=== PATIENT | female | born 2000 | race Two or more races ===

== ENCOUNTER 2025-02-15 22:52 | Observation (INO) | payer MEDICAID, SELFPAY ==
[2025-02-15] VITALS (9 sets, daily range): BP systolic 106–120; BP diastolic 74–83; PULSE 68–87; RESP 18–98; TEMP 36.7; O2SAT 88–99; BMI 25.3
[2025-02-16] VITALS (13 sets, daily range): BP systolic 115–122; BP diastolic 82–85; PULSE 63–94; O2SAT 98–100
[2025-02-16 00:36] LABS: ROM Kit Lot # 578010271; ROM Swab Mixed By: GONZY; Rupture of Fetal Membranes Negative (Negative); Swb Mxed in Solvent 1 min? Yes
[2025-02-16] MEDS: hydrOXYzine HCL 25 MG TABLET 50 MG PO (01:58)
== END 2025-02-16 02:04 | disposition home or self-care (01) ==
PROVIDERS: Admitting Provider Obstetrics & Gynecology; Visit Provider Obstetrics & Gynecology
DX: O47.03 False labor before 37 completed weeks of gestation, third trimester (principal); Z3A.36 36 weeks gestation of pregnancy
CPT/HCPCS: 59025; 59899; 84112; A9270

== ENCOUNTER 2025-02-23 09:49 | Observation (INO) | payer MEDICAID, SELFPAY ==
[2025-02-23] VITALS (13 sets, daily range): BP systolic 90–110; BP diastolic 55–67; PULSE 65–86; RESP 18–100; TEMP 36.6; O2SAT 94–100; BMI 25.7
[2025-02-23] MEDS: ONDANSETRON ODT 4 MG TABRAP PO (10:55)
== END 2025-02-23 11:02 | disposition home or self-care (01) ==
PROVIDERS: Admitting Provider Student in an Organized Health Care Education/Training Program; PCP Nurse Practitioner Women's Health; Visit Provider Student in an Organized Health Care Education/Training Program
DX: O36.8130 Decreased fetal movements, third trimester, not applicable or unspecified (principal); O21.2 Late vomiting of pregnancy; O26.893 Other specified pregnancy related conditions, third trimester; R19.7 Diarrhea, unspecified; R42 Dizziness and giddiness; Z3A.37 37 weeks gestation of pregnancy
CPT/HCPCS: 59025; 59899; Q0162

== ENCOUNTER 2025-03-01 03:14 | Inpatient (IN) | payer MEDICAID, SELFPAY ==
[2025-03-01] VITALS (33 sets, daily range): BP systolic 106–142; BP diastolic 58–93; PULSE 55–92; RESP 16–100; TEMP 36.6–36.9; O2SAT 82–100
[2025-03-01] MEDS: RINGERS LACTATED 1000 ML 1,000 ML 125 ML IV (04:15)
[2025-03-01 04:26] LABS: Collection Type, Urine Clean Catch
--- NOTE | 2025-03-01 04:30 | PD.LDHP ---
Documentation for date of: 03/01/25 OB Labor/Induct. HPI History of Present Illness Chief complaint: 24 y/o 38w 2d present to L&D in labor with SROM : 3 Para: 1 Term pregnancies: 1 pregnancies: 0 Living children: 1 History of Abortions: Spontaneous and Elective: 1 History of Vaginal deliveries: 1 History of sections: No History of : No WENDY: 03/13/25 Gestational Age (weeks): 38 Gestational Age (days): 2 History of present illness: 24 y/o 38w 2d present to L&D in labor with SROM at 5 m vertex, pan every 3 minutes, category 1 tracing. Pt is RH negative and did get RHOGAM at 28 weeks. Pt also has anemia. Other newman has been unremarkable. Pt has a hx of PPH at her last delivery. EFW 3000g History of Present Dating criteria: LMP confirmed by 1st trimester US Adequate Care: Yes Ultrasounds: normal 1st trimester US and normal mid trimester US Obstetrical complications: other (RH negative) Medical complications: none Labs Maternal Blood Type: O Neg Labs: Positive: Rubella Titre, Negative: RPR, Hepatitis B, HIV, Chlamydia, Gonorrhea and Group Beta Strep and Unknown: Herpes Type 1, Herpes Type 2 and Covid-19 Review of Systems Review of Systems Systems Reviewed: All systems reviewed, normal except as documented Past Medical History Surgical History SURGICAL: Negative Section Meds Home Medications and Allergies Home Medications ?Medication ?Instructions ?Recorded ?Confirmed ?Type folic acid 1 mg tablet 1 mg PO DAILY 02/15/25 02/23/25 History Allergies Allergy/AdvReac Type Severity Reaction Status Date / Time No Known Allergies Allergy Verified 02/23/25 10:22 OB Exam Physical Exam Vital signs: Temp Pulse Resp BP Pulse Ox 97.8 F 60 18 133/74 H 98 03/01/25 04:04 03/01/25 04:52 03/01/25 03:45 03/01/25 04:52 03/01/25 05:05 Constitutional Constitutional: moderate distress (Secondary to painful contractions) Routine HEENT Exam Head: Present normocephalic and atraumatic Eye: Present EOMI, PERRL and normal accommodation ENT: Present mucous membranes moist Routine Neck Exam Neck: Present full ROM Routine Respiratory Exam Respiratory: Absent respiratory distress Routine Cardiovascular Exam Cardiovascular: Present RRR Routine Abdominal Exam Abdominal: Present soft Comments: Gravid uterus EFW 3000g Routine Exam External: Present normal urethra appearance; Absent lesions Detailed Labor and Delivery Exam Dilation (cm): 5 Effacement (%): 80 Cervix position: posterior station: -2 Consistency: soft Presentation: Vertex Membranes: ruptured Amniotic fluid: clear Baseline heart rate: 120 monitor accelerations: 15x15 monitor decelerations: None adjunct faculty for medical terminology variability: Moderate (11-25) Contraction frequency (min): 3 min Routine Extremities Exam Extremities: Present full ROM Routine Back/Spine/Pelvis Exam Back/Spine: Present full ROM Routine Skin Exam Skin: Present intact, dry and warm Routine Neurological Exam Neurological: Present alert, oriented X3 and CN II-XII intact Routine Psychiatric Exam Psychiatric: Present normal affect and normal thought process OB Results Labs 03/01/25 04:10 03/01/25 04:10 Labs: Short CBC 03/01/25 Range/Units 04:10 WBC 9.6 (3.6-11.0) Thou/mm3 Hgb 10.6 L (12.0-16.0) g/dL Hct 33.5 L (36.0-46.0) % Plt Count 339 (140-440) Thou/mm3 BMP 03/01/25 04:10 Sodium 140 Potassium 4.1 Chloride 108 H Carbon Dioxide 21.8 BUN 6 L Creatinine 0.5 L Glucose 90 Calcium 8.7 Liver Function 03/01/25 Range/Units 04:10 Total Bilirubin 0.3 (0.3-1.2) mg/dL AST 23 (0-34) U/L ALT 23 (10-49) U/L Alkaline Phosphatase 166 H (46-116) U/L Albumin 3.9 (3.5-5.0) gm/dL Urine 03/01/25 Range/Units 04:10 Urine Color Colorless A (Lt Yel-Yel) Urine Clarity Clear (Clear/Hazy) Urine pH 7.0 (5.0-7.0) Ur Specific [place] 1.005 (1.001-1.035) Urine Protein Negative (Neg - Trace) Urine Glucose (UA) Negative (Negative) OB Assessment & Plan Assessment and Plan (1) Normal labor: Status: Acute (2) Anemia affecting in third trimester: Status: Acute (3) Rh negative status during : Status: Acute (4) with 38 completed weeks gestation: Status: Acute Additional Plan Induction method: none Plan: anticipate NVD and consult MD coreas Additional Plan Comment: Routine admit orders Pt has a hx of PPH, ordered 2 units PRBCs on hold Continuous EFM PPH meds at bedside (3) Rh negative status during Qualifiers: Trimester: third trimester Qualified Code(s): O26.893 - Other specified related conditions, third trimester; Z67.91 - Unspecified blood type, Rh negative
[2025-03-01 04:35] LABS: Basophils % (Auto) 0 % (0-2.5); Eosinophils % (Auto) 0 % (0-10); Hematocrit 33.5 % (36.0-46.0); Hemoglobin 10.6 g/dL (12.0-16.0); Immature Granulocytes % (Auto) 1 % (0-0); Immature Granulocytes Auto 0.05 Thou/mm3 (0.00-0.00); Lymphocytes # (Auto) 2.4 Thou/mm3 (1.0-4.8); Lymphocytes % (Auto) 25 % (10-50); Mean Corpuscular HGB Conc 31.6 g/dl (31.0-37.0); Mean Corpuscular Hemoglobin 22.6 pg (25.0-35.0); Mean Corpuscular Volume 72 fL (80-100); Monocytes # (Auto) 0.6 Thou/mm3 (0.0-0.8); Monocytes % (Auto) 6 % (0-12); Neutrophils # (Auto) 6.5 Thou/mm3 (1.8-7.7); Neutrophils % (Auto) 68 % (37-80); Nucleated Red Blood Cell % 0 /100 WBC (0); Platelet Count 339 Thou/mm3 (140-440); RDW Standard Deviation 38.2 fL (36.4-46.3); Red Blood Count 4.68 Miln/mm3 (4.00-5.20); White Blood Count 9.6 Thou/mm3 (3.6-11.0)
[2025-03-01 04:45] LABS: Bilirubin,Urine Negative (Negative); Blood,Urine Negative (Negative); Clarity,Urine Clear (Clear/Hazy); Color,Urine Colorless (Lt Yel-Yel); Glucose, Urine Negative (Negative); Ketones,Urine Negative (Negative); Leukocyte Esterase,Urine Negative (Negative); Nitrite,Urine Negative (Negative); Protein,Urine Negative (Neg - Trace); RBC,Urine 1 /hpf (0-3); Specific Gravity,Urine 1.005 (1.001-1.035); Squamous Epithelial Cell,Urine < 1 /hpf (0-5); Urobilinogen,Urine Negative mg/dL (0.0-1.0); WBC,Urine 1 /hpf (0-5)
[2025-03-01 04:47] LABS: Alanine Aminotransferase 23 U/L (10-49); Albumin, Serum 3.9 gm/dL (3.5-5.0); Albumin/Globulin Ratio 1.4 (1.2-2.2); Alkaline Phosphatase 166 U/L (46-116); Anion Gap 10 (7-16); Aspartate Amino Transferase 23 U/L (0-34); BUN/Creatinine Ratio 12 Ratio (12-20); Bilirubin,Total 0.3 mg/dL (0.3-1.2); Blood Urea Nitrogen 6 mg/dL (9-23); Calcium 8.7 mg/dL (8.3-10.6); Calcium (Corrected) 8.8 mg/dL (8.5-10.1); Carbon Dioxide 21.8 mMol/L (20.0-31.0); Chloride 108 mMol/L (98-107); Creatinine (Component) 0.5 mg/dL (0.6-1.3); Globulin 2.7 gm/dL (2.3-3.5); Glucose 90 mg/dL (74-106); Osmolality,Calculated 277 (275-295); Potassium 4.1 mMol/L (3.4-5.1); Sodium 140 mMol/L (136-145); Total Protein 6.6 gm/dL (5.7-8.2); Uric Acid 4.3 mg/dL (3.1-7.8); eGFR > 60 See Note
[2025-03-01 05:04] LABS: Syphilis Nonreactive (Nonreactive)
[2025-03-01] MEDS: MINERAL OIL 30 ML UDC TOP (05:16)
[2025-03-01 05:18] LABS: Fibrinogen 448 mg/dL (175-375); INR 0.9 (0.9-1.3); Prothrombin Time 10.1 Seconds (9.0-12.2)
[2025-03-01] MEDS: OXYTOCIN in NS 20 units 20 UNIT/1,000 ML BAG 125 UNIT IV (05:26)
[2025-03-01] MEDS: METHYLERGONOVINE INJ 0.2 MG/ML VIAL IM (05:29)
[2025-03-01] MEDS: LIDOCAINE HCL 1% 20 ML VIAL INFL (05:31)
[2025-03-01] MEDS: BENZO/LANO/ALOE (Dermoplast) 60 GM CAN 1 SPRAY TOP (05:38)
--- NOTE | 2025-03-01 05:45 | OBDSUM_ITS ---
Data ([facility]) Data Hx Section: No Maternal Blood Type: O Neg Rubella Titre: Positive RPR: Non-reactive Labs: Negative: RPR, Hepatitis B, HIV, Chlamydia, Gonorrhea and Group Beta Strep and Unknown: Herpes Type 1 and Herpes Type 2 : 3 Para: 1 Term: 1 : 0 Livin : 1 Delivery Data ([facility]) Labor Data Stimulated/Augmented: No Induction: No ROM Date: 03/01/25 ROM Time: 03:00 Rupture Type: SROM Amniotic Fluid: Clear Delivery Data EDC: 03/13/25 EDC calculated by:: LMP/early US confirmation Labor Onset Stage 1 Date: 03/01/25 Labor Onset Stage 1 Time: 03:37 Labor Onset Stage 2 Date: 03/01/25 Labor Onset Stage 2 Time: 05:09 Delivery Date: 03/01/25 Delivery Time: 05:23 Gestational age (weeks): 38 Gestational age (days): 2 Placenta Delivery Date: 03/01/25 Placenta Delivery Time: 05:26 Delivered by: Larissa Franco Delivery nurse: Rasheeda See Safety Inspector at delivery: No Support person(s) at delivery: FOB Other staff at delivery: 2nd Nurse Other staff at delivery: Milana Lo Delivery Method Delivery: Vaginal Delivery Type: Spontaneous Presentation: Vertex Position: OA Anesthesia Type Primary Anesthesia: None Delivery Room Medications Other Intrapartum Medications: No Post Delivery Medications: Antibiotics Post Delivery Medications N/A: Yes Placenta Placenta Delivery: Spontaneous Placenta Cultures Obtained: No Placenta Sent for Examination: No Cord Sample: Cord Blood Obtained Episiotomy Episiotomy: None Lacerations #1: Vaginal: 1st degree Perineal repair Sutures used for repair: 3.0 Vicryl (CT) EBL Estimated blood loss (ml): 500 Umbilical Cord Umbilical Vessels: 3 Nuchal Cord: x2 Additional Procedures Patient was admitted early this morning in labor at 5 cm and progressed very quickly to complete after an hour. After a few pushes patient had an of a viable male . Infant's anterior shoulder delivered with gentle downward traction subsequent delivery of the posterior shoulder and the body without complications. Infant placed on mother's abdomen. Vigorous cry upon delivery. Cord was clamped cut by FOB. Cord blood obtained. Three-vessel cord noted. Placenta expelled spontaneously and intact. Patient sustained a small vaginal laceration. Repaired using 3-[address] Perineum intact. Patient did have some brisk bleeding. Methergine x 1 given. TXA x 2 given. Patient to continue with IV Pitocin. Excellent hemostasis achieved after vigorous fundal massage and removal of clots from the posterior fornix. EBL is 500. Sponge and needle count correct. Mother and baby stable, skin to skin and bonding in LDR. Patient to get 2 g of Ancef x 1. Marianna Data ([facility]) Marianna Data Infant Gender: Male Infant Weight Grams: 2920 1 Minute Total: 10 5 Minute Total: 9
[2025-03-01] MEDS: TRANEXAMIC ACID 1,000 MG IVPB 1,000 MG/100 ML BAG 200 MG IV (06:15)
[2025-03-01] MEDS: ceFAZolin 2 GM in SODIUM CHLORIDE 0.9% 100 ML IV (07:10)
[2025-03-01] MEDS: DOCUSATE SOD 100 MG CAPSULE PO (09:39)
[2025-03-01 10:07] LABS: Basophils % (Auto) 0 % (0-2.5); Eosinophils % (Auto) 0 % (0-10); Hemoglobin 9.9 g/dL (12.0-16.0); Immature Granulocytes % (Auto) 1 % (0-0); Immature Granulocytes Auto 0.09 Thou/mm3 (0.00-0.00); Lymphocytes # (Auto) 1.2 Thou/mm3 (1.0-4.8); Lymphocytes % (Auto) 7 % (10-50); Mean Corpuscular HGB Conc 30.9 g/dl (31.0-37.0); Mean Corpuscular Hemoglobin 22.9 pg (25.0-35.0); Mean Corpuscular Volume 74 fL (80-100); Monocytes # (Auto) 0.8 Thou/mm3 (0.0-0.8); Monocytes % (Auto) 5 % (0-12); Neutrophils # (Auto) 15.2 Thou/mm3 (1.8-7.7); Neutrophils % (Auto) 88 % (37-80); Nucleated Red Blood Cell % 0 /100 WBC (0); Platelet Count 322 Thou/mm3 (140-440); RDW Standard Deviation 39.8 fL (36.4-46.3); Red Blood Count 4.33 Miln/mm3 (4.00-5.20); White Blood Count 17.3 Thou/mm3 (3.6-11.0)
[2025-03-02 04:00] VITALS: BP 117/76; PULSE 73; RESP 18; TEMP 36.6; O2SAT 98
[2025-03-02 07:15] VITALS: BP 117/79; PULSE 72; RESP 16; TEMP 36.9; O2SAT 98
--- NOTE | 2025-03-02 10:16 | PD.LDPPPRG ---
Subjective Subjective Interval history: Patient is a 24-year-old G3P now 2009 who delivered yesterday so she is day #1. She was 38 2/7 weeks. Evette delivered her. She did have a history of hemorrhage with her first child and did get a blood transfusion. Her charted her EBL yesterday at delivery was 500 cc and she was given extra uterononics yesterday. Today the patient is resting comfortably. She does appear pale she is having a little bit of hard time breast-feeding. She denies pain,fevers or heavy vaginal bleeding. Predelivery hemoglobin is 10.6 and another one drawn about 6 hours later was 9.9 I ordered a CBC for this morning. Exam Vital Signs Temp Pulse Resp BP Pulse Ox O2 Del Method 98.4 F 72 16 117/79 98 Room Air 03/02/25 07:15 03/02/25 07:15 03/02/25 07:15 03/02/25 07:15 03/02/25 07:15 03/02/25 07:15 Constitutional Constitutional: no acute distress Comments: Appears pale Routine Abdominal Exam Abdominal: Present soft Comments: Fundus firm at umbilicus Additional findings Additional findings: No significant pedal edema or erythema Objective Labs 03/01/25 10:00 03/01/25 04:10 Labs: Laboratory Results - last 24 hr 03/01/25 03/01/25 04:10 09:45 Blood Type O Negative Rho(D) IG Studies Ready Antibody Screen POSITIVE Antibody Identification Anti-D from RhoGam Maternal Bleed Negative Blood Bank Wristband ID Yes Assessment & Plan Problem List (1) Anemia affecting in third trimester: Status: Acute Assessment and plan: Recheck hemoglobin this morning. Iron and vitamins to be taken at home. (2) Rh negative status during : Status: Acute Assessment and plan: RhoGAM given (3) Term delivered: Status: Acute Assessment and plan: Patient doing well. did see patient in the hospital. She is working on breast-feeding. She desires to go home later today as long as her hemoglobin is stable. She can follow-up with Evette in 6 weeks. Time Spent With Patient Time: Total time spent is greater than 50% in coordination of care (as documented) at patient's floor/unit and/or counseling patient: Time with patient: less than 15 minutes
[2025-03-02 10:48] LABS: Basophils % (Auto) 0 % (0-2.5); Eosinophils % (Auto) 0 % (0-10); Hematocrit 26.4 % (36.0-46.0); Immature Granulocytes % (Auto) 1 % (0-0); Immature Granulocytes Auto 0.07 Thou/mm3 (0.00-0.00); Lymphocytes % (Auto) 18 % (10-50); Mean Corpuscular HGB Conc 31.1 g/dl (31.0-37.0); Mean Corpuscular Hemoglobin 22.5 pg (25.0-35.0); Mean Corpuscular Volume 73 fL (80-100); Monocytes # (Auto) 0.8 Thou/mm3 (0.0-0.8); Monocytes % (Auto) 8 % (0-12); Neutrophils # (Auto) 7.9 Thou/mm3 (1.8-7.7); Neutrophils % (Auto) 73 % (37-80); Nucleated Red Blood Cell % 0 /100 WBC (0); Platelet Count 255 Thou/mm3 (140-440); RDW Standard Deviation 39.3 fL (36.4-46.3); Red Blood Count 3.64 Miln/mm3 (4.00-5.20); White Blood Count 10.8 Thou/mm3 (3.6-11.0)
[2025-03-02 10:54] LABS: Hemoglobin 8.2 g/dL (12.0-16.0)
--- NOTE | 2025-03-02 12:43 | PD.LDDS ---
DS: Providers Provider Date of admission: 03/01/25 03:44 Primary care physician: Physician No Primary/Family Admitting Provider: Luciano Mclean MD Attending Provider on Admission: Larissa Franco CNM Consults: 03/01/25 05:56 Referral Routine Comment: Attending Provider on DC: Maxine [facility] ([facility]) Discharging Provider: Maxine Choudhary MD ([facility]) Anticipated date of discharge: 03/02/25 DS: Diagnosis Discharge Diagnosis (1) Term delivered: Status: Acute Assessment & Plan: Patient is doing well. Discharge home. (2) Rh negative status during : Status: Acute Assessment & Plan: Patient is status post RhoGAM (3) Anemia affecting in third trimester: Status: Acute Assessment & Plan: Hemoglobin stable. Iron rich foods, iron and vitamins recommended Problem List Completed Was Problem List Reviewed/Reconciled?: Yes Summary/Hosp Course Brief History: 24 y/o 38w 2d present to L&D in labor with SROM at 5 m vertex, pan every 3 minutes, category 1 tracing. Pt is RH negative and did get RHOGAM at 28 weeks. Pt also has anemia. Other newman has been unremarkable. Pt has a hx of PPH at her last delivery. EFW 3000g Peripartum Data Delivery Method: Normal Vaginal Delivery Episiotomy Description: None Laceration Description: see Delivery Summary complications: none Status at Discharge Cognitive/behavioral status at discharge: Stable Functional status at discharge: independent ambulation Overall status at discharge: patient is progressing back to baseline Time Spent with Patient Time attestation: Total time spent providing and/or coordinating discharge services: Time spent: Less than 30 minutes Specific discharge activities: Call for heavy vaginal bleeding, fevers to 101 degree F or depression Exam Vital Signs Temp Pulse Resp BP Pulse Ox O2 Del Method 98.4 F 72 16 117/79 98 Room Air 03/02/25 07:15 03/02/25 07:15 03/02/25 07:15 03/02/25 07:15 03/02/25 07:15 03/02/25 07:15 Narrative Exam Patient is alert and oriented x 3. She is resting comfortably. Her fundus is firm at umbilicus and her extremities show no cyanosis significant edema or erythema Discharge Plan Plan Patient Disposition: HOME (Self Care) Disposition Comment: stable Patient condition on transfer: Stable Prescriptions/Referrals Prescriptions/Med Rec: New ibuprofen 800 mg tablet 800 mg PO Q6H MDD 4 PRN (Reason: pain) Qty: 90 0RF docusate sodium [Colace] 100 mg capsule 100 mg PO BID Qty: 60 0RF lanolin 50 % ointment 1 applic topical TID PRN (Reason: skin irritation) Qty: 15 0RF Continued folic acid 1 mg tablet 1 mg PO DAILY Patient Comments: TAKE 1 TABLET BY MOUTH EVERY DAY No Action PNV cmb#95-ferrous fumarate-FA [] 28 mg iron- 800 mcg tablet 1 tab PO QDAY 60 Days Qty: 60 0RF Patient Comments: TAKE 1 TABLET BY MOUTH EVERY DAY Referrals: No Primary/Family,Physician [Primary Care Provider] - Patient/Caregiver Discharge Instructions Meds to Beds: No Discharge Activity: activity as tolerated Other Discharge Activity Instructions:: Follow-up with Larissa Franco CNM in 3 weeks Other Discharge Diet Instructions: Pelvic rest x 6 weeks. No intercourse tampons douching for 6 weeks. No bath tubs or Jacuzzi for 6 weeks. Call with heavy bleeding, depression, fevers 101.0 ?F or higher. Education Materials: After a Vaginal , : Caring for Yourself Print Language: Greenlandic Stand Alone Forms: Orin Award Info., Patient Portal Info Letter Vaccines Vaccines Given During Stay: Rhogam Discharge Order Discharge Orders: Discharge (Routine); Ordered 03/02/25 Ordered By: Maxine Choudhary ([facility]) Planned Discharge Date 03/02/25 (2) Rh negative status during Qualifiers: Trimester: third trimester Qualified Code(s): O26.893 - Other specified related conditions, third trimester; Z67.91 - Unspecified blood type, Rh negative
== END 2025-03-02 13:50 | disposition home or self-care (01) | DRG 560 ==
LOC: S4SX 07:18 → S4NX 08:11
PROVIDERS: Obstetrics & Gynecology; Admitting Provider Student in an Organized Health Care Education/Training Program; Visit Provider Nurse Practitioner Women's Health
DX: O99.02 Anemia complicating childbirth (principal); O26.893 Other specified pregnancy related conditions, third trimester; Z67.41 Type O blood, Rh negative; O70.0 First degree perineal laceration during delivery; Z37.0 Single live birth; O69.81X0 Labor and delivery complicated by cord around neck, without compression, not applicable or unspecified; Z3A.38 38 weeks gestation of pregnancy
CPT/HCPCS: 36415; 59025; 59409; 80053; 81001; 84112; 84550; 85025; 85384; 85461; 85610; 85730; 86780; 86850; 86870; 86900; 86901; 94762; J0690; J2210; J2590; J2790; J3490; J7050; J7120; A9270

== ENCOUNTER 2025-09-16 16:37 | Emergency (ER) | payer MEDICAID, SELFPAY ==
[2025-09-16 16:38] VITALS: BMI 22.8
[2025-09-16 16:48] VITALS: BP 108/68; PULSE 106; RESP 20; TEMP 36.7; O2SAT 97
--- NOTE | 2025-09-16 16:56 | EDRME_ITS ---
Rapid Medical Screening Exam [facility] Arrival date/time: 09/16/25 16:37 24-year-old female with no known medical history presents to the emergency room with a chief complaint of lower abdominal pain, diarrhea, vomiting x 2 days I have greeted and performed a focused initial assessment of this patient. A comprehensive ED assessment and evaluation of the patient, analysis of all test results, and completion of the medical decision making process will be conducted by additional ED providers. Chief Complaint: Flu Like Symptoms Vital signs: Vital Signs Temperature 98.0 F 09/16/25 16:48 Pulse Rate 106 H 09/16/25 16:48 Respiratory Rate 20 09/16/25 16:48 Blood Pressure 108/68 09/16/25 16:48 Pulse Oximetry (%) 97 09/16/25 16:48 Oxygen Delivery Method Room Air 09/16/25 16:48 Vital signs reviewed by provider: No Exam: Soft nontender abdomen. No right lower quadrant or right upper quadrant abdominal tenderness with palpation No CVA tenderness bilaterally Clear bilateral lung sounds no wheezing or any abnormal breath sounds Clinical Impression: Gastroenteritis/gastritis/UTI/abdominal pain
[2025-09-16] MEDS: ONDANSETRON ODT 4 MG TABRAP PO (17:04)
[2025-09-16 17:45] LABS: Basophils # (Auto) 0.0 Thou/mm3 (0.0-0.2); Basophils % (Auto) 0 % (0-2.5); Eosinophils # (Auto) 0.0 Thou/mm3 (0.0-0.5); Eosinophils % (Auto) 0 % (0-10); Hematocrit 36.5 % (36.0-46.0); Hemoglobin 11.4 g/dL (12.0-16.0); Immature Granulocytes Auto 0.07 Thou/mm3 (0.00-0.00); Lymphocytes # (Auto) 0.9 Thou/mm3 (1.0-4.8); Lymphocytes % (Auto) 6 % (10-50); Mean Corpuscular HGB Conc 31.2 g/dl (31.0-37.0); Mean Corpuscular Hemoglobin 24.3 pg (25.0-35.0); Mean Corpuscular Volume 78 fL (80-100); Monocytes # (Auto) 0.9 Thou/mm3 (0.0-0.8); Monocytes % (Auto) 6 % (0-12); Neutrophils # (Auto) 13.8 Thou/mm3 (1.8-7.7); Neutrophils % (Auto) 88 % (37-80); Nucleated Red Blood Cell # 0.00 Thou/mm3 (0.00-0.00); Nucleated Red Blood Cell % 0 /100 WBC (0); Platelet Count 357 Thou/mm3 (140-440); RDW Standard Deviation 49.1 fL (36.4-46.3); Red Blood Count 4.70 Miln/mm3 (4.00-5.20); White Blood Count 15.6 Thou/mm3 (3.6-11.0)
[2025-09-16 17:51] LABS: Collection Type, Urine Clean Catch
[2025-09-16 17:59] LABS: HCG Qualitative,Urine Negative
[2025-09-16 18:00] LABS: Bilirubin,Urine Negative (Negative); Blood,Urine 3+ (Negative); Clarity,Urine Clear (Clear/Hazy); Color,Urine Yellow (Lt Yel-Yel); Glucose, Urine Negative (Negative); Ketones,Urine Negative (Negative); Leukocyte Esterase,Urine Negative (Negative); Nitrite,Urine Negative (Negative); PH,Urine 6.5 (5.0-7.0); Protein,Urine Trace (Neg - Trace); RBC,Urine 17 /hpf (0-3); Specific Gravity,Urine 1.018 (1.001-1.035); Squamous Epithelial Cell,Urine 3 /hpf (0-5); Urobilinogen,Urine Negative mg/dL (0.0-1.0); WBC,Urine 3 /hpf (0-5)
[2025-09-16 18:03] LABS: Alanine Aminotransferase 12 U/L (10-49); Albumin, Serum 4.8 gm/dL (3.5-5.0); Albumin/Globulin Ratio 1.8 (1.2-2.2); Alkaline Phosphatase 79 U/L (46-116); Anion Gap 11 (7-16); Aspartate Amino Transferase 17 U/L (0-34); BUN/Creatinine Ratio 10 Ratio (12-20); Bilirubin,Total 0.8 mg/dL (0.3-1.2); Blood Urea Nitrogen 7 mg/dL (9-23); Calcium 9.0 mg/dL (8.3-10.6); Calcium (Corrected) 9.0 mg/dL (8.5-10.1); Carbon Dioxide 26.9 mMol/L (20.0-31.0); Chloride 102 mMol/L (98-107); Creatinine (Component) 0.7 mg/dL (0.6-1.3); Estimated Creatinine Clearance 104.3 mL/min (>60); Globulin 2.6 gm/dL (2.3-3.5); Glucose 105 mg/dL (74-106); Lipase 21 U/L (12-53); Osmolality,Calculated 277 (275-295); Potassium 4.0 mMol/L (3.4-5.1); Sodium 140 mMol/L (136-145); Total Protein 7.4 gm/dL (5.7-8.2); eGFR > 60 See Note
[2025-09-16 20:47] VITALS: BP 115/80; PULSE 91; RESP 19; TEMP 37.1; O2SAT 100
--- NOTE | 2025-09-16 21:02 | EDNOTE_ITS ---
ED General RME/HPI General Chief complaint: Flu Like Symptoms Stated complaint: FEVER/DIARRHEA/VOMITING/NEWTON x 2 DAYS Time Seen by Provider: 09/16/25 19:31 Arrival date/time: 09/16/25 16:37 CC: Nausea vomiting diarrhea HPI ongoing for the past 24 hours. Last episode of diarrhea was approximately half an hour ago currently nauseated but no vomiting for some time. The patient states that she had a fever , but never took his temperature and has had the shakes at some point yesterday. All of these were relieved with taking Advil. Patient denies chest pain shortness of breath painful urination or bloody urination. At the time of the exam the patient is awake alert oriented nontoxic-appearing not in any active vomiting. RME / HPI RME / HPI narrative: 09/16/25 16:37 24-year-old female with no known medical history presents to the emergency room with a chief complaint of lower abdominal pain, diarrhea, vomiting x 2 days I have greeted and performed a focused initial assessment of this patient. A comprehensive ED assessment and evaluation of the patient, analysis of all test results, and completion of the medical decision making process will be conducted by additional ED providers. Exam: Soft nontender abdomen. No right lower quadrant or right upper quadrant abdominal tenderness with palpation No CVA tenderness bilaterally Clear bilateral lung sounds no wheezing or any abnormal breath sounds Impression: Gastroenteritis/gastritis/UTI/abdominal pain Related Data Home Medications ?Medication ?Instructions ?Recorded ?Confirmed folic acid 1 mg tablet 1 mg PO DAILY 02/15/2502/23 Previous Rx's ?Medication ?Instructions ?Recorded vit no.95-ferrous 1 tab PO QDAY 60 days #60 t abs 07/10/23 fumarate 28 mg-folic acid 800 mcg tablet () docusate sodium 100 mg capsule 100 mg PO BID #60 caps 03/01/25 (Colace) ibuprofen 800 mg tablet 800 mg PO Q6H PRN pain #90 t abs 03/01/25 lanolin 50 % topical ointment 1 applic topical TID PRN skin 03/01/25 irritation #15 tubes loperamide 2 mg capsule (Imodium 2 mg PO Q6H PRN loose stool #6 caps 09/16/25 A-D) ondansetron 4 mg disintegrating 4 mg PO Q8H #10 tabs 1 tablet Allergies Allergy/AdvReac Type Severity Reaction Status Date / Time No Known Allergies Allergy Verified 09/16/25 16:40 Review of Systems Review of Systems Narrative Review of Systems: GEN: No fever, no chills, no weight loss EYES: No discharge, no visual changes, no pain HEENT: No ear pain, no congestion, no sore throat PULM: No shortness of breath, no cough, no congestion CV: No chest pain, no dyspnea on exertion, no palpitations GI: + nausea, + vomiting, + diarrhea, no pain, no constipation : No frequency, no urgency, no dysuria MUSC/SKEL: No joint pain, no back pain SKIN: No rash PSYCH: No hallucinations, no depression HEME/LYMPH: No easy bleeding or bruising tendencies NEURO: No weakness, no headache Past Medical History Past Medical History NEUROLOGIC: Negative Neurological Disorders CARDIAC: Negative Cardiac Disorders or Congestive Heart Failure RESPIRATORY: Negative Chronic Obstructive Pulmonary Disease (COPD) GASTROINTESTINAL: Negative Gastrointestinal Disorders, Hepatitis or Colorectal Cancer GENITOURINARY: Negative Genitourinary Disorders or Renal Disease REPRODUCTIVE: Positive Previous Pregnancies (3, with PRBC X3 UNITS); Negative Breast Cancer, Endometriosis, Genital Herpes, Gonorrhea, Pelvic Inflammatory Disease, Syphilis or Uterine Prolapse MUSCULOSKELETAL: Negative Musculoskeletal Disorders or Bone Cancer ENDOCRINE: Negative Endocrine Disorders, Diabetes Mellitus Type 1 or Diabetes Mellitus Type 2 HEMATOLOGIC: Negative Blood Disorders OTHER HISTORY: Negative Hospitalization, Autoimmune Disease, Down Syndrome, Developmental Delay, Shingles, Falls, Blood Transfusions, Blood Transfusion Reaction, Anesthesia Reactions, Organ Transplant, Chemotherapy, Radiation Therapy, Hyperbaric Therapy, MRSA, VRSA, Vancomycin-Resistant Enterococci, Human Immunodeficiency Virus (HIV), Chicken Pox, Measles, Mumps, Rubella ([place] Measles), Pertussis, Clostridium Difficile, Cancer, Breast Cancer, Cervical Cancer, Colorectal Cancer, Lung Cancer or Ovarian Cancer Family History FAMILY HISTORY: Negative Family Psychiatric Problems, Family Respiratory Disorders, Family Cardiac Disorders, Family Gastrointestinal Problems, Family Cancer, Family Surgery or Family Anesthesia Reaction Surgical History SURGICAL: Negative Section or Organ Transplant Social History SMOKING STATUS: Never smoker SUBSTANCE USE: does not use ED Exam Narrative Physical exam: [General: Not in any acute distress Head normocephalic HEENT: Within acceptable limits Neck is supple nontender Chest equal chest rise nontender to palpation Respiratory: Clear to auscultation no wheezes crackles or rubs CV: Rate rhythm is regular no murmurs rubs or clicks Abdomen is soft nontender no masses positive bowel sounds all 4 quadrants Back: No CVA tenderness no spinous process tenderness from cervical spine thoracic and lumbar spine Skin: Intact no petechiae rash induration ulceration or crepitus Extremities: Moving all extremity against resistance cap refill less than 2 seconds neurosensory intact Neuro: Awake alert oriented x3 Glascow coma 15 no focal deficits] Course Course Course Narrative: Patient is not in any acute distress. The patient has not eaten anything out of ordinary. This time that I will treat the symptoms. Patient be discharged home to follow-up with a primary care doctor. Quality Measures none Orders Category Date Time Status CBC Stat Lab 09/16/25 17:15 Completed CMP [Comprehensive Metabolic Panel] Stat Lab 09/16/25 17:15 Completed HCG Qualitative,Urine Stat Lab 09/16/25 17:29 Completed Lipase Stat Lab 09/16/25 17:15 Completed UA [Urinalysis] Stat Lab 09/16/25 17:29 Completed Urine Culture Stat Lab 09/16/25 17:29 Received Acetaminophen Tab [Tylenol Tab] Med 09/16/25 16:55 Discontinued 650 mg PO X1 ONE Ondansetron Odt [Zofran Odt] Med 09/16/25 16:55 Discontinued 4 mg PO X1 ONE Vital Signs Vital signs: Vital Signs Temperature 98.0 F 09/16/25 16:48 Pulse Rate 106 H 09/16/25 16:48 Respiratory Rate 20 09/16/25 16:48 Blood Pressure 108/68 09/16/25 16:48 Pulse Oximetry (%) 97 09/16/25 16:48 Oxygen Delivery Method Room Air 09/16/25 16:48 Discharge Plan Plan Patient Disposition: HOME (Self Care) Prescriptions/Referrals Prescriptions/Med Rec: New ondansetron 4 mg tablet,disintegrating 4 mg PO Q8H Qty: 10 0RF loperamide [Imodium A-D] 2 mg capsule 2 mg PO Q6H PRN (Reason: loose stool) Qty: 6 0RF No Action PNV no.95-ferrous fumarate-FA [] 28 mg iron- 800 mcg tablet 1 tab PO QDAY 60 Days Qty: 60 0RF Patient Comments: TAKE 1 TABLET BY MOUTH EVERY DAY folic acid 1 mg tablet 1 mg PO DAILY Patient Comments: TAKE 1 TABLET BY MOUTH EVERY DAY ibuprofen 800 mg tablet 800 mg PO Q6H MDD 4 PRN (Reason: pain) Qty: 90 0RF docusate sodium [Colace] 100 mg capsule 100 mg PO BID Qty: 60 0RF lanolin 50 % ointment 1 applic topical TID PRN (Reason: skin irritation) Qty: 15 0RF Referrals: Roger Worthington MD [Primary Care Provider, Family Practice] - In 1 week Problem List Clinical Impression: Nausea & vomiting, Diarrhea Patient/Caregiver Discharge Instructions Education Materials: Self-Care for Vomiting and Diarrhea, ED Vomiting and Diarrhea ... Additional Instructions: Rest drink plenty of fluids take the medications as prescribed if there is a worsening of symptoms in spite of the medications return to the emergency room for reevaluation. Print Language: Slovenian Stand Alone Forms: Orin Award Info., Patient Portal Info Letter PA/ALEKSANDRA Supervising Physician THO/ALEKSANDRA Supervising Physician: Jere Reese ENP [facility] Clinical Information Provided by: patient Medical Records reviewed [facility] Meds/Rx considered, not ordered None Labs/Rad/Tests considered, not ordered None Chronic Illness/Social Conditions which may negatively complicate care or outcome(s)-explain: None or not applicable EKG EKG not done Labs Labs: interpreted by ia Lab(s) Interpretation(s): CBC shows a mild leukocytosis of 15.6 no anemia thrombocytopenia noted on review patient's the majority of patient's the laboratory results are in the past have shown leukocytosis. CMP shows no significant electrolyte imbalances renal impairment transaminitis or T. bili elevation. Urine is negative for urine Jamal tract infection is negative. Medication Administration(s) Medication Administration History Discontinued Medications Acetaminophen (Acetaminophen 325 Mg Tablet) 650 mg PO X1 ONE Stop: 09/16/25 16:56 Last Admin: 09/16/25 17:04 Dose: Not Given Documented By: KHUSHI Non-Admin Reason: Patient Refused Ondansetron HCl (Ondansetron Odt 4 Mg Tabrap) 4 mg PO X1 ONE; Protocol Stop: 09/16/25 16:56 Last Admin: 09/16/25 17:04 Dose: 4 mg Documented By: KHUSHI
[2025-09-16 22:01] VITALS: BP 101/73; PULSE 91; RESP 16; TEMP 36.7; O2SAT 100
== END 2025-09-16 22:03 | disposition home or self-care (01) ==
PROVIDERS: Nurse Practitioner Family; Emergency Provider Emergency Medicine; PCP Family Medicine
DX: N39.0 Urinary tract infection, site not specified (principal); K29.70 Gastritis, unspecified, without bleeding; K52.9 Noninfective gastroenteritis and colitis, unspecified
CPT/HCPCS: 36415; 80053; 81001; 81025; 83690; 85025; 87086; 99282; Q0162